=== PATIENT | female | born 1955 | race Hispanic/Latino ===

== ENCOUNTER → 2023-04-18 | Outpatient (CLI) | payer MEDICARE | END | disposition home or self-care (01) | LOC: RAH 08:44 | PROVIDERS: ATTEND Otolaryngology | DX: R13.10 Dysphagia, unspecified (principal); K22.2 Esophageal obstruction; M79.89 Other specified soft tissue disorders | CPT/HCPCS: 74220 ==

== ENCOUNTER 2024-01-30 19:56 | Emergency (ER) | payer MEDICARE ==
[~2024-01-30] VITALS: Ht 157.5 cm; Wt 60.3 kg
[2024-01-30 19:58] VITALS: BP 163/72; PULSE 67; RESP 18; TEMP 98
== END 2024-01-30 20:40 | disposition home or self-care (01) ==
LOC: EDH 19:56
DX: K94.23 Gastrostomy malfunction (principal); E11.9 Type 2 diabetes mellitus without complications; E78.00 Pure hypercholesterolemia, unspecified; I10 Essential (primary) hypertension; Z90.710 Acquired absence of both cervix and uterus
CPT/HCPCS: 43762